=== PATIENT | male | born 1990 | race Caucasian/White ===

== ENCOUNTER 2019-04-20 11:27 | Inpatient (IN) | payer OTHER ==
[2019-04-20 11:43] VITALS: BMI 23.6
--- NOTE | 2019-04-20 12:52 | HP ---
COWS - Scale Resting Pulse: 1= [place] 81-100 Sweatin= Chills/Flushing Restless Observation: 1= Difficult to Sit Still Pupil Size: 0= Normal to Room Light Bone or Joint Aches: 1= Mild Discomfort Runny Nose/ Eye Tearin= Runny Nose/Eyes GI Upset > 30mins: 2= Nausea/Diarrhea Tremor Observation: 2= Slight Tremor Visible Yawning Observation: 1= 1-2x During Session Anxiety or Irritability: 1=Feels Anxious/Irritable Goose Flesh Skin: 0=Smooth Skin COWS Score: 12 CIWA Score Nausea/Vomitin Muscle Tremors: 4-Moderate,w/Arms Extend Anxiety: 4-Mod. Anxious/Guarded Agitation: 1-Slight > Activity Paroxysmal Sweats: 1-Minimal Palms Moist Orientation: 1-Uncertain about Date Tacttile Disturbances: 1-Very Mild Itch/Numbness Auditory Disturbances: 0-None Visual Disturbances: 0-None Headache: 2-Mild CIWA-Ar Total Score: 16 - Admission Criteria [facility]ASAS Guidelines: Admission for Medically Managed Detox: Requires at least one of the followin. CIWA greater than 12 2. Seizures within the past 24 hours 3. Delirium tremens within the past 24 hours 4. Hallucinations within the past 24 hours 5. Acute intervention needed for co occurring medical disorder 6. Acute intervention needed for co occurring psychiatric disorder 7. Severe withdrawal that cannot be handled at a lower level of care (continued vomiting, continued diarrhea, abnormal vital signs) requiring intravenous medication and/or fluids 8. Patient presents the following: CIWA greater than 12 Admission Criteria Met: Admission criteria met Admission ROS S - HPI Chief Complaint: I want to get off the drugs, I know I can do it, I'm tired of it and I can't do it on my own Allergies/Adverse Reactions: Allergies Allergy/AdvReac Type Severity Reaction Status Date / Time No Known Allergies Allergy Verified 04/20/19 11:38 History of Present Illness: 28 yo gentleman here for detox from opiates and alprazolam, also using marijuana and sometimes does cocaine. Patient with history of seizures, black outs and overdose. Was last here in December 2014 but only stayed for one day. He has never been on methadone or suboxone program. Lives with his grandmother. Exam Limitations: Clinical Condition - Ebola screening Have you traveled outside of the country in the last 21 days: No (N) Have you had contact with anyone from an Ebola affected area: No Do you have a fever: No - Review of Systems Constitutional: Loss of Appetite, Malaise, Changes in sleep EENT: reports: Tearing, Nose Congestion Respiratory: reports: No Symptoms reported Cardiac: reports: No Symptoms Reported GI: reports: Nausea, Poor Appetite, Indigestion, Abdominal cramping : reports: Dysuria Musculoskeletal: reports: Joint Pain (left knee arthritis from football injury) , Muscle Pain Integumentary: reports: No Symptoms Reported Neuro: reports: Headache, Tremors Endocrine: reports: No Symptoms Reported Hematology: reports: No Symptoms Reported Psychiatric: reports: Judgement Intact, Mood/Affect Appropiate, Anxious Other Systems: Reviewed and Negative Patient History - Patient Medical History Hx Anemia: No Hx Asthma: No Hx Chronic Obstructive Pulmonary Disease (COPD): No Hx Cancer: No Hx Cardiac Disorders: No Hx Congestive Heart Failure: No Hx Hypertension: No Hx Hypercholesterolemia: No Hx Pacemaker: No HX Cerebrovascular Accident: No Hx Seizures: Yes (drug related, 2017) Hx Dementia: No Hx Diabetes: No Hx Gastrointestinal Disorders: No Hx Liver Disease: No Hx Genitourinary Disorders: No Hx Sexually Transmitted Disorders: No Hx Renal Disease (ESRD): No Hx Thyroid Disease: No Hx Human Immunodeficiency Virus (HIV): No Hx Hepatitis C: Yes Hx Depression: Yes (with anxiety) Hx Suicide Attempt: Yes (once age 27) Hx Bipolar Disorder: Yes Hx Schizophrenia: No - Patient Surgical History Past Surgical History: No Hx Neurologic Surgery: No Hx Cataract Extraction: No Hx Cardiac Surgery: No Hx Lung Surgery: No Hx Breast Surgery: No Hx Breast Biopsy: No Hx Abdominal Surgery: No Hx Appendectomy: No Hx Cholecystectomy: No Hx Genitourinary Surgery: No Hx Section: No Hx Orthopedic Surgery: No Anesthesia Reaction: No - PPD History Previous Implant?: Yes Documented Results: Negative w/o proof Implanted On Prior [facility] Admission?: Yes Date: 01/10/15 PPD to be Administered?: Yes - Reproductive History Patient is a Female of Child Bearing Age (11 -55 yrs old): No - Smoking Cessation Smoking history: Current every day smoker Have you smoked in the past 12 months: Yes Aproximately how many cigarettes per day: 20 Hx Chewing Tobacco Use: No Initiated information on smoking cessation: Yes 'Breaking Loose' booklet given: 04/20/19 (give on floor) - Substance & Tx. History Hx Alcohol Use: No Hx Substance Use: Yes Substance Use Type: Cocaine, Heroin, Marijuana, Opiates Hx Substance Use Treatment: Yes (detox, rehab) - Substances abused Heroin Substance route: Inhalation Frequency: Daily Amount used: 10 bags Age of first use: 27 Date of last use: 04/20/19 Oxycontin Substance route: Oral Frequency: Daily Amount used: five 30mg oxycontin Age of first use: 19 Date of last use: 04/18/19 Alprazolam (Xanax) Substance route: Oral Frequency: Daily Amount used: five 2 mg tablets Age of first use: 19 Date of last use: 04/20/19 Marijuana/Hashish Substance route: Smoking Frequency: Daily Amount used: 1 joint Age of first use: 15 Date of last use: 04/19/19 Cocaine Substance route: Inhalation Frequency: 1-2 times per week Amount used: 1/2 gm Age of first use: 28 Date of last use: 04/19/19 Family Disease History - Family Disease History Family Disease History: Diabetes: Grandparent (alcohol dependent, ccoaine dependence ), Respiratory: Mother (living, etoch), Other: Grandparent, Father ( living hx drugs ), Mother, Sister (two sisters healthy), Son (age six -healthy) , Daughter (age 4 - healthy) Admission Physical Exam [facility] - Vital Signs Vital Signs: Vital Signs - 24 hr 04/20/19 04/20/19 11:39 12:25 Temperature 97.2 F L 97.2 F L Pulse Rate 79 79 Respiratory 14 14 Rate Blood Pressure 148/84 148/84 - Physical General Appearance: Yes: Nourished, Appropriately Dressed, Moderate Distress, Tremorous, Anxious HEENTM: Yes: EOMI, Hearing grossly Normal, Normocephalic, Normal Voice Respiratory: Yes: Normal Breath Sounds, No Respiratory Distress Neck: Yes: No masses,lesions,Nodules Breast: Yes: Breast Exam Deferred Cardiology: Yes: Regular Rhythm, Regular Rate Abdominal: Yes: Flat, Soft Genitourinary: Yes: Dysuria Back: Yes: Normal Inspection Musculoskeletal: Yes: full range of Motion, Gait Steady, Muscle Pain Extremities: Yes: Normal Inspection, Non-Tender, Tremors Neurological: Yes: Fully Oriented, Alert, Normal Mood/Affect, Normal Response Integumentary: Yes: Normal Color, Warm Lymphatic: Yes: Within Normal Limits - Diagnostic (1) Opioid dependence with withdrawal Current Visit: Yes Status: Chronic (2) Sedative, hypnotic or anxiolytic dependence with withdrawal, uncomplicated Current Visit: Yes Status: Chronic (3) Marijuana dependence Current Visit: Yes Status: Chronic (4) Nicotine dependence Current Visit: Yes Status: Chronic Qualifiers: Nicotine product type: cigarettes Substance use status: uncomplicated Qualified Code(s): F17.210 - Nicotine dependence, cigarettes, uncomplicated (5) History of seizure Current Visit: Yes Status: Chronic Comment: drug related (6) Cocaine abuse Current Visit: Yes Status: Chronic (7) Left knee injury Current Visit: Yes Status: Chronic Qualifiers: Encounter type: sequela Qualified Code(s): S89.92XS - Unspecified injury of left lower leg, sequela Comment: history of foot ball injury - told he needs surgery but has not done it Cleared for Admission [facility] - Detox or Rehab [facility] Level of Care: Medically Managed Detox Regimen/Protocol: Methadone/Valium Breathalyzer - Breathalyzer Breathalyzer: 0 Urine Drug Screen - Test Device Lot number: [id number] Expiration date: 01/18/21 - Control Is test valid?: Yes - Results Drug screen NEGATIVE: No Urine drug screen results: THC-Marijuana, MANAN-Cocaine, FEN-Fentanyl, MOP-Opiates , OXY-Oxycodone, BZO-Benzodiazepines Inpatient Rehab Admission - Rehab Decision to Admit Inpatient rehab admission?: No
[2019-04-20] MEDS ORDERED: BISMUTH SUBSALICYLATE 524 MG/30 ML UD PO PRN (13:04)
[2019-04-20] MEDS ORDERED: cloNIDine HCL 0.1 MG TABLET PO PRN (13:04)
[2019-04-20] MEDS ORDERED: IBUPROFEN 400 MG TABLET (FP) PO PRN (13:04)
[2019-04-20] MEDS ORDERED: MAGNESIUM HYDROX 2400MG/30ML ORAL SUSPENSION 30 ML CUP PO PRN (13:04)
[2019-04-20] MEDS ORDERED: hydrOXYzine PAMOATE 25 MG CAPSULE (FP) PO PRN (13:04)
[2019-04-20] MEDS ORDERED: MAGNESIUM CITRATE 300 ML BOTTLE PO PRN (13:04)
[2019-04-20] MEDS ORDERED: MAG HYDROX/AL HYDROX/SIMETH 30 ML UNIT-DOSE CUP PO PRN (13:04)
[2019-04-20] MEDS ORDERED: METHADONE HCL 10 MG TABLET (FOR DETOX USE ONLY) PO ONE (13:04)
[2019-04-20] MEDS ORDERED: METHOCARBAMOL 500 MG TABLET PO PRN (13:04)
[2019-04-20] MEDS ORDERED: MENTHOL/PHENOL 1 EACH UD MM PRN (13:04)
[2019-04-20] MEDS ORDERED: ACETAMINOPHEN 325 MG TABLET (FP) PO PRN ×2 (13:04)
[2019-04-20] MEDS ORDERED: diazePAM 5 MG TABLET PO ONE (13:04)
[2019-04-20] MEDS: diazePAM 5 MG TABLET PO SCH ×2 (14:16→21:49)
[2019-04-20] MEDS: NICOTINE 21 MG/24 HOURS TOPICAL PATCH TD SCH (14:16)
[2019-04-20] MEDS: NICOTINE POLACRILEX 4 MG GUM BUC PRN (21:50)
[2019-04-20] MEDS: THIAMINE HCL 100 MG TABLET (FP) PO SCH (21:54)
[2019-04-20] MEDS: MELATONIN 5 MG TABLETS PO PRN (22:15)
[2019-04-21] MEDS: diazePAM 5 MG TABLET PO SCH ×3 (05:43→22:02)
[2019-04-21] MEDS ORDERED: METHADONE HCL 10 MG TABLET (FOR DETOX USE ONLY) ONE (09:17)
[2019-04-21] MEDS ORDERED: METHADONE HCL 5 MG TABLET (FOR DETOX USE ONLY) ONE (09:18)
[2019-04-21] MEDS ORDERED: METHADONE (DETOX) 20 MG, METHADONE (DETOX) 5 MG PO ONE (10:00)
[2019-04-21] MEDS: NICOTINE 21 MG/24 HOURS TOPICAL PATCH TD SCH (10:26)
[2019-04-21] MEDS: NICOTINE POLACRILEX 4 MG GUM BUC PRN (10:27)
[2019-04-21] MEDS: diazePAM 5 MG TABLET PO PRN (10:27)
[2019-04-21] MEDS: PRENATAL VITAMINS W/ FOLIC ACID TABLET (FP) PO SCH (10:27)
--- NOTE | 2019-04-21 11:33 | CONSULT ---
[facility] Psychiatric Consult - Data Date of interview: 04/21/19 Admission source: [facility] Identifying data: Patient is a 28 year old single male, father of two, unemployed, domiciled, and is financially supported by family. This is one of multiple admissions for patient. Patient admitted to for opiate and benzodiazepine dependence. Substance Abuse History: - Smoking Cessation. Smoking history: Current every day smoker. Have you smoked in the past 12 months: Yes. Aproximately how many cigarettes per day: 10. Hx Chewing Tobacco Use: No. Initiated information on smoking cessation: No. 'Breaking Loose' booklet given: 01/08/15. - Substance & Tx. History. Hx Alcohol Use: No. Hx Substance Use: Yes. Substance Use Type : Marijuana, Opiates, Tranquilizers. Hx Substance Use Treatment: No. - Substances Abused. Alprazolam (Xanax). Route: Oral. Frequency: Daily. Amount used: 8 MG. Age of first use: 23. Date of Last Use: 01/07/15. OXYCODONE. Route: Oral. Frequency: Daily. Amount used: 180 MG. Age of first use: 18. Date of Last Use: 01/07/15. Marijuana/Hashish. Route: Smoking. Frequency: Daily. Amount used: 3. Age of first use: 15. Date of Last Use: Medical History: Seizures (drug related) Psychiatric History: Patient denies h/o psychiatric hospitalizations and outpatient psychiatric care. He report history of one suicide attempt at 27 years of age by overdose of oxycodone but denies requiring medical attention. At present he reports stable mood but is experiencing difficulty sleeping. Patient denies suicidal/homicidal ideation. Physical/Sexual Abuse/Trauma History: denies. Mental Status Exam - Mental Status Exam Alert and Oriented to: Time, Place, Person Cognitive Function: Good Patient Appearance: Well Groomed Mood: Withdrawn Affect: Mood Congruent Patient Behavior: Cooperative Speech Pattern: Appropriate Voice Loudness: Normal Thought Process: Goal Oriented Thought Disorder: Not Present Hallucinations: Denies Suicidal Ideation: Denies Homicidal Ideation: Denies Insight/Judgement: Poor Sleep: Poorly Appetite: Fair Muscle strength/Tone: Normal Gait/Station: Normal Psychiatric Findings - Problem List ([place] 1, 2,3) (1) Substance induced mood disorder Current Visit: Yes Status: Acute (2) Cocaine abuse Current Visit: Yes Status: Chronic (3) Marijuana dependence Current Visit: Yes Status: Chronic (4) Nicotine dependence Current Visit: Yes Status: Chronic Qualifiers: Nicotine product type: cigarettes Substance use status: uncomplicated Qualified Code(s): F17.210 - Nicotine dependence, cigarettes, uncomplicated (5) Opioid dependence with withdrawal Current Visit: Yes Status: Chronic (6) Sedative, hypnotic or anxiolytic dependence with withdrawal, uncomplicated Current Visit: Yes Status: Chronic (7) Substance-induced sleep disorder Current Visit: Yes Status: Acute - Initial Treatment Plan Initial Treatment Plan: Psychoeducation provided. Detoxification in progress. Will order Seroquel 50mg HS (as per patient's request. Report favorable effects from taking seroquel in previous detox/rehav facilities). Benefits and side effects discussed. Verbal consent given.
[2019-04-21 12:11] LABS: BILIRUBIN,TOTAL 0.2 mg/dL (0.2-1); BLOOD UREA NITROGEN 9.4 mg/dL (7-18); CALCIUM 9.4 mg/dL (8.5-10.1); CREATININE 0.8 mg/dL (0.55-1.3); POTASSIUM 4.1 mmol/L (3.5-5.1); TOT PROT 7.1 g/dl (6.4-8.2)
[2019-04-21 12:15] LABS: HEMATOCRIT 46.1 % (35.4-49); HEMOGLOBIN 15.2 GM/dL (11.7-16.9); MCH 30.7 pg (25.7-33.7); MEAN CELL VOLUME 93.1 fl (80-96); MEAN PLT VOLUME 8.7 fl (7.5-11.1); PLATELET COUNT 240 K/MM3 (134-434); RBC 4.96 M/mm3 (4.00-5.60); RDW 13.6 % (11.9-15.9); WHITE BLOOD COUNT 7.1 K/mm3 (4.0-10.0)
--- NOTE | 2019-04-21 14:52 | PN ---
[facility] CIWA - CIWA Score Nausea/Vomitin-Mild Nausea/No Vomiting Muscle Tremors: 4-Moderate,w/Arms Extend Anxiety: 3 Agitation: 3 Paroxysmal Sweats: 3 Orientation: 0-Oriented Tacttile Disturbances: 0-None Auditory Disturbances: 0-None Visual Disturbances: 0-None Headache: 0-None Present CIWA-Ar Total Score: 14 S COWS - Scale Resting Pulse: 0= [place] 80 or Below Sweatin= Chills/Flushing Restless Observation: 1= Difficult to Sit Still Pupil Size: 0= Normal to Room Light Bone or Joint Aches: 2= Severe Diffuse Aches Runny Nose/ Eye Tearin= Runny Nose/Eyes GI Upset > 30mins: 1= Stomach Cramp Tremor Observation of Outstretched Hands: 2= Slight Tremor Visible Yawning Observation: 0= None Anxiety or Irritability: 2=Irritable/Anxious Goose Flesh Skin: 0=Smooth Skin COWS Score: 11 [facility] Progress Note (SOAP) Subjective: Anxious, chills, sweating Objective: 04/21/19 14:50 Last Vital Signs Temp Pulse Resp BP Pulse Ox 97.7 F 73 18 130/81 04/21/19 13:40 04/21/19 13:40 04/21/19 13:40 04/21/19 13:40 Elevated b/p 130/81: denies htn Laboratory Tests 04/21/19 04/21/19 04/21/19 07:30 07:30 07:30 WBC 7.1 RBC 4.96 Hgb 15.2 Hct 46.1 MCV 93.1 MCH 30.7 MCHC 33.0 RDW 13.6 D Plt Count 240 MPV 8.7 Sodium 141 Potassium 4.1 Chloride 105 Carbon Dioxide 31 Anion Gap 5 L BUN 9.4 Creatinine 0.8 Est GFR (CKD-EPI)AfAm 142.89 Est GFR (CKD-EPI)NonAf 123.29 Random Glucose 79 Calcium 9.4 Total Bilirubin 0.2 AST 14 L ALT 15 Alkaline Phosphatase 105 Total Protein 7.1 Albumin 4.0 RPR Titer Nonreactive Labs reviewed Assessment: 04/21/19 14:51 Withdrawal sxs Noted with elevated b/p Plan: Continue detox Encouraged PO water intake Elevated b/p: most likely r/t withdrawal; on clonidine prn
[2019-04-21] MEDS: QUEtiapine FUMARATE 50 MG TABLET PO SCH (22:02)
[2019-04-21] MEDS: THIAMINE HCL 100 MG TABLET (FP) PO SCH (22:02)
[2019-04-22] MEDS: diazePAM 5 MG TABLET PO SCH ×2 (06:03→17:27)
[2019-04-22] MEDS ORDERED: METHADONE HCL 10 MG TABLET (FOR DETOX USE ONLY) PO ONE (10:00)
[2019-04-22] MEDS: NICOTINE 21 MG/24 HOURS TOPICAL PATCH TD SCH (10:21)
[2019-04-22] MEDS: PRENATAL VITAMINS W/ FOLIC ACID TABLET (FP) PO SCH (10:21)
--- NOTE | 2019-04-22 11:46 | PN ---
S CIWA - CIWA Score Nausea/Vomitin-Mild Nausea/No Vomiting Muscle Tremors: 2 Anxiety: 3 Agitation: 3 Paroxysmal Sweats: No Perspiration Orientation: 0-Oriented Tacttile Disturbances: 0-None Auditory Disturbances: 0-None Visual Disturbances: 0-None Headache: 2-Mild CIWA-Ar Total Score: 11 [facility] COWS - Scale Resting Pulse: 0= [place] 80 or Below Sweatin= No chills or Flushing Restless Observation: 1= Difficult to Sit Still Pupil Size: 1= Pupils >than Normal Bone or Joint Aches: 1= Mild Discomfort Runny Nose/ Eye Tearin= Nasal Congestion GI Upset > 30mins: 1= Stomach Cramp Tremor Observation of Outstretched Hands: 1= Tremor [place], Not Seen Yawning Observation: 1= 1-2x During Session Anxiety or Irritability: 2=Irritable/Anxious Goose Flesh Skin: 0=Smooth Skin COWS Score: 9 S Progress Note (SOAP) Subjective: alert,irritable,anxious,interrupted sleep,tremor,pain in the body and back Objective: 04/22/19 11:45 Vital Signs Temperature 97.9 F 04/22/19 10:00 Pulse Rate 63 04/22/19 10:00 Respiratory Rate 18 04/22/19 10:00 Blood Pressure 148/72 04/22/19 10:00 O2 Sat by Pulse Oximetry (%) 04/22/19 11:45 Laboratory Last Values WBC 7.1 K/mm3 (4.0-10.0) 04/21/19 07:30 RBC 4.96 M/mm3 (4.00-5.60) 04/21/19 07:30 Hgb 15.2 GM/dL (11.7-16.9) 04/21/19 07:30 Hct 46.1 % (35.4-49) 04/21/19 07:30 MCV 93.1 fl (80-96) 04/21/19 07:30 MCH 30.7 pg (25.7-33.7) 04/21/19 07:30 MCHC 33.0 g/dl (32.0-35.9) 04/21/19 07:30 RDW 13.6 % (11.9-15.9) D 04/21/19 07:30 Plt Count 240 K/MM3 (134-434) 04/21/19 07:30 MPV 8.7 fl (7.5-11.1) 04/21/19 07:30 Sodium 141 mmol/L (136-145) 04/21/19 07:30 Potassium 4.1 mmol/L (3.5-5.1) 04/21/19 07:30 Chloride 105 mmol/L (98-107) 04/21/19 07:30 Carbon Dioxide 31 mmol/L (21-32) 04/21/19 07:30 Anion Gap 5 MMOL/L (8-16) L 04/21/19 07:30 BUN 9.4 mg/dL (7-18) 04/21/19 07:30 Creatinine 0.8 mg/dL (0.55-1.3) 04/21/19 07:30 Est GFR (CKD-EPI)AfAm 142.89 04/21/19 07:30 Est GFR (CKD-EPI)NonAf 123.29 04/21/19 07:30 Random Glucose 79 mg/dL (74-106) 04/21/19 07:30 Calcium 9.4 mg/dL (8.5-10.1) 04/21/19 07:30 Total Bilirubin 0.2 mg/dL (0.2-1) 04/21/19 07:30 AST 14 U/L (15-37) L 04/21/19 07:30 ALT 15 U/L (13-61) 04/21/19 07:30 Alkaline Phosphatase 105 U/L (45-117) 04/21/19 07:30 Total Protein 7.1 g/dl (6.4-8.2) 04/21/19 07:30 Albumin 4.0 g/dl (3.4-5.0) 04/21/19 07:30 RPR Titer Nonreactive (NONREACTIVE) 04/21/19 07:30 Assessment: 04/22/19 11:45 withdrawal symptom Plan: continue detox methadone and valium regimen
[2019-04-22] MEDS: NICOTINE POLACRILEX 4 MG GUM BUC PRN (14:59)
[2019-04-22] MEDS: diazePAM 5 MG TABLET PO PRN ×2 (15:02→19:43)
[2019-04-22] MEDS: QUEtiapine FUMARATE 50 MG TABLET PO SCH (22:04)
[2019-04-22] MEDS: THIAMINE HCL 100 MG TABLET (FP) PO SCH (22:04)
[2019-04-23] MEDS ORDERED: diazePAM 5 MG TABLET PO ONE (06:00)
[2019-04-23] MEDS ORDERED: METHADONE HCL 10 MG TABLET (FOR DETOX USE ONLY) ONE (08:59)
[2019-04-23] MEDS ORDERED: METHADONE HCL 5 MG TABLET (FOR DETOX USE ONLY) ONE (08:59)
[2019-04-23] MEDS: diazePAM 5 MG TABLET PO PRN (09:54)
[2019-04-23] MEDS: PRENATAL VITAMINS W/ FOLIC ACID TABLET (FP) PO SCH (09:54)
[2019-04-23] MEDS: NICOTINE 21 MG/24 HOURS TOPICAL PATCH TD SCH (09:55)
[2019-04-23] MEDS: NICOTINE POLACRILEX 4 MG GUM BUC PRN (09:57)
[2019-04-23] MEDS ORDERED: METHADONE (DETOX) 10 MG, METHADONE (DETOX) 5 MG PO ONE (10:00)
[2019-04-23] MEDS ORDERED: NICOTINE POLACRILEX 2 MG GUM BUC PRN (10:02)
--- NOTE | 2019-04-23 10:02 | PN ---
S CIWA - CIWA Score Nausea/Vomitin Muscle Tremors: 2 Anxiety: 2 Agitation: 2 Paroxysmal Sweats: No Perspiration Orientation: 0-Oriented Tacttile Disturbances: 0-None Auditory Disturbances: 0-None Visual Disturbances: 0-None Headache: 1-Very Mild CIWA-Ar Total Score: 9 [facility] COWS - Scale Resting Pulse: 1= [place] 81-100 Sweatin= Chills/Flushing Restless Observation: 1= Difficult to Sit Still Pupil Size: 1= Pupils >than Normal Bone or Joint Aches: 2= Severe Diffuse Aches Runny Nose/ Eye Tearin= Nasal Congestion GI Upset > 30mins: 1= Stomach Cramp Tremor Observation of Outstretched Hands: 1= Tremor [place], Not Seen Yawning Observation: 1= 1-2x During Session Anxiety or Irritability: 2=Irritable/Anxious Goose Flesh Skin: 0=Smooth Skin COWS Score: 12 S Progress Note (SOAP) Subjective: alert,irritable,anxious,interrupted sleep,pain in the body Objective: 04/23/19 10:01 Vital Signs Temperature 98.2 F 04/23/19 09:17 Pulse Rate 86 04/23/19 09:17 Respiratory Rate 18 04/23/19 09:17 Blood Pressure 136/64 04/23/19 09:17 O2 Sat by Pulse Oximetry (%) Laboratory Last Values WBC 7.1 K/mm3 (4.0-10.0) 04/21/19 07:30 RBC 4.96 M/mm3 (4.00-5.60) 04/21/19 07:30 Hgb 15.2 GM/dL (11.7-16.9) 04/21/19 07:30 Hct 46.1 % (35.4-49) 04/21/19 07:30 MCV 93.1 fl (80-96) 04/21/19 07:30 MCH 30.7 pg (25.7-33.7) 04/21/19 07:30 MCHC 33.0 g/dl (32.0-35.9) 04/21/19 07:30 RDW 13.6 % (11.9-15.9) D 04/21/19 07:30 Plt Count 240 K/MM3 (134-434) 04/21/19 07:30 MPV 8.7 fl (7.5-11.1) 04/21/19 07:30 Sodium 141 mmol/L (136-145) 04/21/19 07:30 Potassium 4.1 mmol/L (3.5-5.1) 04/21/19 07:30 Chloride 105 mmol/L (98-107) 04/21/19 07:30 Carbon Dioxide 31 mmol/L (21-32) 04/21/19 07:30 Anion Gap 5 MMOL/L (8-16) L 04/21/19 07:30 BUN 9.4 mg/dL (7-18) 04/21/19 07:30 Creatinine 0.8 mg/dL (0.55-1.3) 04/21/19 07:30 Est GFR (CKD-EPI)AfAm 142.89 04/21/19 07:30 Est GFR (CKD-EPI)NonAf 123.29 04/21/19 07:30 Random Glucose 79 mg/dL (74-106) 04/21/19 07:30 Calcium 9.4 mg/dL (8.5-10.1) 04/21/19 07:30 Total Bilirubin 0.2 mg/dL (0.2-1) 04/21/19 07:30 AST 14 U/L (15-37) L 04/21/19 07:30 ALT 15 U/L (13-61) 04/21/19 07:30 Alkaline Phosphatase 105 U/L (45-117) 04/21/19 07:30 Total Protein 7.1 g/dl (6.4-8.2) 04/21/19 07:30 Albumin 4.0 g/dl (3.4-5.0) 04/21/19 07:30 RPR Titer Nonreactive (NONREACTIVE) 04/21/19 07:30 Assessment: 04/23/19 10:01 withdrawal symptom Plan: continue detox,methadone regimen
[2019-04-23] MEDS: MELATONIN 5 MG TABLETS PO PRN (22:33)
[2019-04-23] MEDS: QUEtiapine FUMARATE 50 MG TABLET PO SCH (22:33)
[2019-04-23] MEDS: THIAMINE HCL 100 MG TABLET (FP) PO SCH (22:36)
--- NOTE | 2019-04-24 08:48 | PN ---
[facility] COWS - Scale Resting Pulse: 0= [place] 80 or Below Sweatin= No chills or Flushing Restless Observation: 0= Sits Still Pupil Size: 0= Normal to Room Light Bone or Joint Aches: 1= Mild Discomfort Runny Nose/ Eye Tearin= None GI Upset > 30mins: 0= None Tremor Observation of Outstretched Hands: 0= None Yawning Observation: 0= None Anxiety or Irritability: 0= None Goose Flesh Skin: 0=Smooth Skin COWS Score: 1 [facility] Progress Note (SOAP) Subjective: alert,no complaint Objective: 04/24/19 08:46 Vital Signs Temperature 97.5 F L 04/24/19 06:45 Pulse Rate 61 04/24/19 06:45 Respiratory Rate 18 04/24/19 06:45 Blood Pressure 102/53 L 04/24/19 06:45 O2 Sat by Pulse Oximetry (%) Assessment: 04/24/19 08:46 no withdrawal symptom Plan: discharge today,follow up with katie moran with arrangement
--- NOTE | 2019-04-24 08:51 | DS ---
[facility] Detox Discharge Summary Admission Date: 04/20/19 Discharge Date: 04/24/19 - History Present History: Cocaine Dependence, Opioid Dependence, Sedative Dependence Additional Comments: follow up with [facility] as arrangement Pertinent Past History: nicotine dependence seizure left knee injury - Physical Exam Results Vital Signs: Vital Signs Temperature 97.5 F L 04/24/19 06:45 Pulse Rate 61 04/24/19 06:45 Respiratory Rate 18 04/24/19 06:45 Blood Pressure 102/53 L 04/24/19 06:45 O2 Sat by Pulse Oximetry (%) Pertinent Admission Physical Exam Findings: withdrawal signs and symptom Laboratory Last Values WBC 7.1 K/mm3 (4.0-10.0) 04/21/19 07:30 RBC 4.96 M/mm3 (4.00-5.60) 04/21/19 07:30 Hgb 15.2 GM/dL (11.7-16.9) 04/21/19 07:30 Hct 46.1 % (35.4-49) 04/21/19 07:30 MCV 93.1 fl (80-96) 04/21/19 07:30 MCH 30.7 pg (25.7-33.7) 04/21/19 07:30 MCHC 33.0 g/dl (32.0-35.9) 04/21/19 07:30 RDW 13.6 % (11.9-15.9) D 04/21/19 07:30 Plt Count 240 K/MM3 (134-434) 04/21/19 07:30 MPV 8.7 fl (7.5-11.1) 04/21/19 07:30 Sodium 141 mmol/L (136-145) 04/21/19 07:30 Potassium 4.1 mmol/L (3.5-5.1) 04/21/19 07:30 Chloride 105 mmol/L (98-107) 04/21/19 07:30 Carbon Dioxide 31 mmol/L (21-32) 04/21/19 07:30 Anion Gap 5 MMOL/L (8-16) L 04/21/19 07:30 BUN 9.4 mg/dL (7-18) 04/21/19 07:30 Creatinine 0.8 mg/dL (0.55-1.3) 04/21/19 07:30 Est GFR (CKD-EPI)AfAm 142.89 04/21/19 07:30 Est GFR (CKD-EPI)NonAf 123.29 04/21/19 07:30 Random Glucose 79 mg/dL (74-106) 04/21/19 07:30 Calcium 9.4 mg/dL (8.5-10.1) 04/21/19 07:30 Total Bilirubin 0.2 mg/dL (0.2-1) 04/21/19 07:30 AST 14 U/L (15-37) L 04/21/19 07:30 ALT 15 U/L (13-61) 04/21/19 07:30 Alkaline Phosphatase 105 U/L (45-117) 04/21/19 07:30 Total Protein 7.1 g/dl (6.4-8.2) 04/21/19 07:30 Albumin 4.0 g/dl (3.4-5.0) 04/21/19 07:30 RPR Titer Nonreactive (NONREACTIVE) 04/21/19 07:30 - Treatment Hospital Course: Detox Protocol Followed, Detoxed Safely, Responded well, Discharged Condition Good, Rehab Referral Accepted Patient has Accepted a Rehab Referral to: [facility] - Medication Discharge Medications: Ambulatory Orders NK [No Known Home Medication] 01/08/15 - Diagnosis (1) Cocaine abuse Current Visit: Yes Status: Chronic (2) History of seizure Current Visit: Yes Status: Chronic (3) Left knee injury Current Visit: Yes Status: Chronic Qualifiers: Encounter type: sequela Qualified Code(s): S89.92XS - Unspecified injury of left lower leg, sequela (4) Marijuana dependence Current Visit: Yes Status: Chronic (5) Nicotine dependence Current Visit: Yes Status: Chronic Qualifiers: Nicotine product type: cigarettes Substance use status: uncomplicated Qualified Code(s): F17.210 - Nicotine dependence, cigarettes, uncomplicated (6) Opioid dependence with withdrawal Current Visit: Yes Status: Chronic (7) Sedative, hypnotic or anxiolytic dependence with withdrawal, uncomplicated Current Visit: Yes Status: Chronic - AMA Did Patient Leave Against Medical Advice: No
[2019-04-24] MEDS: PRENATAL VITAMINS W/ FOLIC ACID TABLET (FP) PO SCH (09:03)
[2019-04-24] MEDS: NICOTINE 21 MG/24 HOURS TOPICAL PATCH TD SCH (09:05)
[2019-04-24 09:10] VITALS: BP 143/71; PULSE 78; TEMP 97.3
[2019-04-24] MEDS ORDERED: METHADONE HCL 10 MG TABLET (FOR DETOX USE ONLY) PO ONE (10:00)
[2019-04-25] MEDS ORDERED: METHADONE HCL 5 MG TABLET (FOR DETOX USE ONLY) PO ONE (06:00)
== END 2019-04-24 09:11 | disposition home or self-care (01) | DRG 773 ==
LOC: YASAS 11:27 → Y6N 13:17
PROVIDERS: ADMIT Surgery; ATTEND Surgery
PROC: HZ2ZZZZ Detoxification Services for Substance Abuse Treatment (ICD-10-PCS; principal; 2019-04-20)
DX: F11.23 Opioid dependence with withdrawal (principal); F13.230 Sedative, hypnotic or anxiolytic dependence with withdrawal, uncomplicated; F14.20 Cocaine dependence, uncomplicated; F12.20 Cannabis dependence, uncomplicated; F19.282 Other psychoactive substance dependence with psychoactive substance-induced sleep disorder; F19.24 Other psychoactive substance dependence with psychoactive substance-induced mood disorder; F31.9 Bipolar disorder, unspecified; F41.8 Other specified anxiety disorders; S89.82XD Other specified injuries of left lower leg, subsequent encounter; X58.XXXD Exposure to other specified factors, subsequent encounter; Y93.61 Activity, american tackle football; Z91.5 Personal history of self-harm; Z86.69 Personal history of other diseases of the nervous system and sense organs
CPT/HCPCS: 36415; 80053; 85027; 86480; 86593